=== PATIENT | male | born 1995 | race Hispanic/Latino ===

== ENCOUNTER → 2024-01-21 | Outpatient (REF) | payer OTHER ==
[~2024-01-21] MED LIST: IOPAMIDOL 370 MG/ML 100 ML INFUS..BTL INJ ONE
== END ==
LOC: CT 13:43
PROVIDERS: ATTEND Nurse Practitioner
DX: R19.7 Diarrhea, unspecified (principal); R10.84 Generalized abdominal pain
CPT/HCPCS: 74177; Q9967